=== PATIENT | female | born 1935 | race Caucasian/White ===

== ENCOUNTER 2018-06-06 22:48 | Emergency (ER) | payer MEDICARE ==
--- NOTE | 2018-06-06 23:32 | ED PDOC ---
HPI: General Adult Time Seen by Provider: 06/06/18 23:00 Chief Complaint (Nursing): Weakness/Neurological Deficit Chief Complaint (Provider): Weakness/Neurological Deficit History Per: Family History/Exam Limitations: no limitations Onset/Duration Of Symptoms: Days (x21) Current Symptoms Are (Timing): Still Present Recently: Treated By A Physician Additional Complaint(s): 82 y/o female with a PMHx of hyperlipidemia presents to the ED for evaluation of weakness. History obtained from the family who report that over the last three weeks, the patient has been eating less and less. Patient has been progressively been becoming more weak. Family states that a few months ago, patient began complaining of difficulty swallowing and had been spitting frequently. Patient had reported of feeling like mucous was stuck in her throat. Patient was evaluated by an ENT and found to have irritation and a mild exam. Patient continued to report difficulty in her throat and later developed decreased PO intake, excessive chills, decreased strength and activity. Patient generally appears dehydrated and "wasted". Patient when asked directly states she feels fine. PMD: Mitchell Quiñones Past Medical History Reviewed: Historical Data, Nursing Documentation, Vital Signs Vital Signs: Last Vital Signs Temp 98.6 F 06/07/18 02:00 Pulse 74 06/07/18 02:00 Resp 20 06/07/18 02:00 BP 175/71 H 06/07/18 02:00 Pulse Ox 98 06/08/18 15:40 - Medical History PMH: Hyperlipidemia - Surgical History Surgical History: No Surg Hx - Family History Family History: States: Unknown Family Hx - Social History Current smoker - smoking cessation education provided: No - Home Medications Home Medications: Ambulatory Orders Medication Instructions Recorded Sulfamethoxazole/Trimethoprim 1 tab PO BID #14 tab 06/07/18 [Bactrim DS 800 mg-160 mg] - Allergies Allergies/Adverse Reactions: Allergies Allergy/AdvReac Type Severity Reaction Status Date / Time No Known Allergies Allergy Verified 06/06/18 22:58 Review of Systems ROS Statement: Except As Marked, All Systems Reviewed And Found Negative (as per HPI) Constitutional: Positive for: Chills, Weakness, Other (Decreased strenght and activity ) ENT: Positive for: Other (Difficulty Swallowing) Gastrointestinal: Positive for: Other (Decreased PO Intake) Physical Exam - Reviewed Nursing Documentation Reviewed: Yes Vital Signs Reviewed: Yes - Physical Exam Appears: Positive for: No Acute Distress (but tired) Head Exam: Positive for: ATRAUMATIC, NORMOCEPHALIC Skin: Positive for: Warm, Dry Eye Exam: Positive for: Other (Sunken Orbits) ENT: Positive for: Normal ENT Inspection, Pharyngeal Erythema (No exudates), Other (Dry Mucous Membranes). Negative for: Tonsillar Exudate (or Erythema) Neck: Positive for: Painless ROM, Supple Cardiovascular/Chest: Positive for: Regular Rate, Rhythm. Negative for: Murmur Respiratory: Positive for: Normal Breath Sounds. Negative for: Wheezing Gastrointestinal/Abdominal: Positive for: Soft. Negative for: Tenderness Back: Positive for: Normal Inspection. Negative for: Decreased ROM Extremity: Positive for: Normal ROM. Negative for: Deformity Lymphatic: Negative for: Adenopathy Neurologic/Psych: Positive for: Alert. Negative for: Motor/Sensory Deficits - Laboratory Results Result Diagrams: 06/06/18 23:31 06/06/18 23:31 - ECG O2 Sat by Pulse Oximetry: 98 (RA) Pulse Ox Interpretation: Normal Medical Decision Making Medical Decision Making: Impression: Poor appetite and weakness Differentials include but not limited to dehydration, electrolyte abnormality, senial dementia, acute stroke, throat mass, and UTI. Plan: -- CT Head w/o Contrast -- CT Neck Soft Tissure w/o Contrast -- EKG -- Urine Culture -- Urinalysis -- IV Insertion -- CXR Portable -- CBC with differentials -- Troponin I -- Thyroid Stimulating Hormone -- Phosphorus -- Magnesium -- Lipase -- CMP -- Ammonia -- Case discussed with Dr. Urbina who agrees with plan of care. Time: 0000 -- Patient endorsed to Dr. Lew, pending CT, Urine and Portable CXR. Scribe Attestation: Documented by Leandra De Souza acting as a scribe for Dr. Perlita Alatorre. Provider Scribe Attestation: All medical record entries made by the Scribe were at my direction and personally dictated by me. I have reviewed the chart and agree that the record accurately reflects my personal performance of the history, physical exam, medical decision making, and the department course for this patient. I have also personally directed, reviewed, and agree with the discharge instructions and disposition. Disposition - Clinical Impression Clinical Impression: Weakness - Patient ED Disposition Is Patient to be Admitted: Transfer of Care - Disposition Referrals: Mitchell Urbina MD [Family Provider] - Disposition: Transfer of Care Disposition Time: 00:00 Condition: STABLE Prescriptions: Sulfamethoxazole/Trimethoprim [Bactrim DS 800 mg-160 mg] 1 tab PO BID #14 tab Instructions: Urinary Tract Infection, Adult (DC), Weakness (ED) Patient Signed Over To: Nya Lew
[2018-06-06 23:36] LABS: BASO % 0.5 % (0.0-2.0); EOS # 0.1 K/uL (0.0-0.7); EOS % 0.9 % (0.0-4.0); HEMOGLOBIN 13.2 g/dL (12.0-16.0); LYMPH # 3.2 K/uL (1.0-4.3); LYMPH % 44.8 % (20.0-40.0); MEAN CELL VOLUME 97.6 fl (81.0-99.0); MEAN CORPUSCULAR HEMOGLOBIN 32.9 pg (27.0-31.0); MEAN CORPUSCULAR HGB CONC 33.7 g/dL (33.0-37.0); MEAN PLATELET VOLUME 8.3 fl (7.2-11.7); MONO # 0.6 K/uL (0.0-0.8); MONO % 8.7 % (0.0-10.0); NEUT # 3.2 K/uL (1.8-7.0); NEUT % 45.1 % (50.0-75.0); NRBC % 0.1 % (0.0-0.0); RBC 4.01 Mil/uL (3.80-5.20); RED CELL DISTRIBUTION WIDTH 13.8 % (11.5-14.5); WHITE BLOOD COUNT 7.1 K/uL (4.8-10.8)
[2018-06-06 23:48] LABS: ALB/GLOB RATIO 1.5 (1.0-2.1); ALBUMIN 4.4 g/dL (3.5-5.0); ALT/SGPT 33 U/L (9-52); AST/SGOT 30 U/L (14-36); BLOOD UREA NITROGEN 12 mg/dl (7-17); CALCIUM 9.4 mg/dL (8.4-10.2); GFR AFRICAN-AMERICAN > 60; GFR NON-AFRICAN AMERICAN > 60; LIPASE 23 U/L (23-300)
[2018-06-06] MEDS ORDERED: Sodium Chloride 0.9% 1,000 ML IV STA (23:49)
[2018-06-07] MEDS ORDERED: Potassium Chloride 20 mEq ER Tab PO STA (00:01)
--- NOTE | 2018-06-07 00:23 | ED PDOC ---
- Laboratory Results Result Diagrams: 06/06/18 23:31 06/06/18 23:31 - ECG O2 Sat by Pulse Oximetry: 98 (RA) Pulse Ox Interpretation: Normal Medical Decision Making Medical Decision Making: Time: 0000 -- Patient endorsed to me by Dr. Alatorre, pending CT, CXR and Urine. Time: 012 CT NECK RESULTS FINDINGS: Oropharynx: Intact. No significant tonsillar enlargement. Hypopharynx: Patent. Larynx: Intact. Normal epiglottis. Trachea: Patent. Retropharyngeal space: No abnormal thickening. Submandibular/parotid glands: Intact. Glands are normal in size. Thyroid: Intact. No enlarged or calcified nodules. Bones/joints: Multilevel DJD changes cervical spine with moderate large anterior endplates osteophytes C3-C6. No acute fracture. Soft tissues: No radiopaque foreign body. No focal prevertebral soft tissue swelling. Vasculature: No acute findings. Lymph nodes: No lymphadenopathy. Lung apices: Interstitial subpleural fibrosis in included upper lungs. IMPRESSION: 1. Multilevel DJD changes cervical spine with moderate large anterior endplates osteophytes C3-C6. 2. No radiopaque foreign body. 3. No focal prevertebral soft tissue swelling. Thank you for allowing us to participate in the care of your patient. Dictated and Authenticated by: Chip Mcelroy MD 06/07/2018 1:24 AM Eastern Time ([place] & [place]) Time: 0131 CT HEAD RESULTS FINDINGS: Brain: No hemorrhage. Small calcifications of the left basal ganglia. Small periventricular microischemic changes. No edema. Ventricles: Appropriate for patient's age. Bones/joints: No acute fracture. Soft tissues: No radiopaque foreign body. Sinuses: No acute sinusitis. Mastoid air cells: No mastoid effusion. IMPRESSION: No acute CT intracranial abnormalities. Thank you for allowing us to participate in the care of your patient. Dictated and Authenticated by: Chip Mcelroy MD 06/07/2018 1:31 AM Eastern Time ([place] & [place]) Scribe Attestation: Documented by Leandra De Souza acting as a scribe for Dr. Nya Lew MD. Provider Scribe Attestation: All medical record entries made by the Scribe were at my direction and personally dictated by me. I have reviewed the chart and agree that the record accurately reflects my personal performance of the history, physical exam, medical decision making, and the department course for this patient. I have also personally directed, reviewed, and agree with the discharge instructions and disposition. Disposition Discussed With .: Mitchell Urbina Doctor Will See Patient In The: Office Counseled Patient/Family Regarding: Studies Performed, Diagnosis, Need For Followup - Clinical Impression Clinical Impression: UTI (urinary tract infection) - POA Present On Arrival: None - Disposition Referrals: Mitchell Urbina MD [Family Provider] - Disposition: Routine/Home Disposition Time: 01:52 Condition: GOOD Additional Instructions: Take your medications as instructed. Follow up with your PCP in 2-3 days. Return for worsening PALAK HOPSON, thank you for letting us take care of you today. Your provider was Nya Lew MD and you were treated for NO APPETITE/WEAKNESS. The emergency medical care you received today was directed at your acute symptoms. If you were prescribed any medication, please fill it and take as directed. It may take several days for your symptoms to resolve. Return to the Emergency Department if your symptoms worsen, do not improve, or if you have any other problems. Please contact your doctor or call one of the physicians/clinics you have been referred to that are listed on the Patient Visit Information form that is included in your discharge packet. Bring any paperwork you were given at discharge with you along with any medications you are taking to your follow up visit. Our treatment cannot replace ongoing medical care by a primary care provider outside of the emergency department. Thank you for allowing the [facility] team to be part of your care today. If you had an X-Ray or CT scan: A Radiologist will review the ED reading if any change in treatment is needed we will contact you. If you had a blood, urine, or wound culture: It will take several days for the results, if any change in treatment is needed we will contact you. If you had an STI test: It will take 48 hours for the results. Please call after 1 week if you have not heard back. Prescriptions: Sulfamethoxazole/Trimethoprim [Bactrim DS 800 mg-160 mg] 1 tab PO BID #14 tab Instructions: Urinary Tract Infection, Adult (DC)
[2018-06-07 00:35] LABS: SQUAMOUS EPITHIAL 3 /hpf (0-5); URINE BACTERIA RARE (<OCC); URINE BILIRUBIN NEGATIVE (NEGATIVE); URINE BLOOD SMALL (NEGATIVE); URINE CLARITY CLOUDY (Clear); URINE COLOR YELLOW (YELLOW); URINE GLUCOSE (UA) NEG (Normal); URINE LEUKOCYTE ESTERASE LARGE Leu/uL (Negative); URINE PROTEIN NEGATIVE (NEGATIVE); URINE UROBILINOGEN 0.2-1.0 mg/dL (0.2-1.0)
[2018-06-07] MEDS ORDERED: Potassium Chloride 20 mEq ER Tab PO ONE ×2 (00:35→00:37)
[2018-06-07 02:02] VITALS: BP 175/71; PULSE 74; RESP 20; TEMP 98.6
--- NOTE | 2018-06-07 07:37 | CARD ---
APPROVED REPORT Date of service: 06/06/2018 <Conclusion> Unusual P axis and short NE interval, likely junctional tachycardia. Nonspecific ST abnormality Abnormal ECG
--- NOTE | 2018-06-07 10:12 | CT ---
Date of service: 06/07/2018 PROCEDURE: CT HEAD WITHOUT CONTRAST. HISTORY: ams COMPARISON: None available. TECHNIQUE: Axial computed tomography images were obtained through the head/brain without intravenous contrast. Radiation dose: Total exam DLP = 717.46 mGy-cm. This CT exam was performed using one or more of the following dose reduction techniques: Automated exposure control, adjustment of the mA and/or kV according to patient size, and/or use of iterative reconstruction technique. FINDINGS: HEMORRHAGE: No intracranial hemorrhage. BRAIN: No mass effect or edema. No atrophy or chronic microvascular ischemic changes. VENTRICLES: Unremarkable. No hydrocephalus. CALVARIUM: Unremarkable. PARANASAL SINUSES: Unremarkable as visualized. No significant inflammatory changes. MASTOID AIR CELLS: Unremarkable as visualized. No inflammatory changes. OTHER FINDINGS: None. IMPRESSION: No intracranial mass, hemorrhage or evidence of acute infarct. The preliminary findings for this examination were reported by [facility] at 1:31 a.m. on 06/07/2018. There is concurrence of this report with the preliminary findings.
--- NOTE | 2018-06-07 10:18 | CT ---
Date of service: 06/07/2018 PROCEDURE: CT NECK WITHOUT CONTRAST HISTORY: difficulty swallowing COMPARISON: None available. TECHNIQUE: CT of the neck without intravenous contrast. Coronal and sagittal reformats generated. Radiation dose: DLP 339.79 mGy-cm This CT exam was performed using one or more of the following dose reduction techniques: Automated exposure control, adjustment of the mA and/or kV according to patient size, and/or use of iterative reconstruction technique. FINDINGS: NASOPHARYNX: Unremarkable. SUPRAHYOID NECK: Unremarkable oropharynx, oral cavity, parapharyngeal space and retropharyngeal space. INFRAHYOID NECK: Unremarkable larynx, hypopharynx, and supraglottic space. Vocal cords intact. MASS: None. GLANDS: Parotid and submandibular glands unremarkable. Normal size thyroid gland, without nodule. LYMPH NODES: Normal. No lymphadenopathy. CERVICAL SPINE: Severe multilevel degenerative disc disease C3-4 through C6-7 with grade 1 retrolisthesis at C3-4. No evidence of fracture. Vertebral bodies maintained height. Multilevel neural foraminal stenosis. There is mild central spinal stenosis noted at the C3-4 level. No spinal stenosis seen elsewhere. OTHER FINDINGS: None. IMPRESSION: No evidence of epiglottitis or retropharyngeal abscess. Incidentally noted severe multilevel degenerative disc disease with mild central spinal stenosis at C3-4 and multilevel neural foraminal stenosis. No additional abnormality. The preliminary findings for this examination were reported by [facility] at 1:24 a.m. on 06/07/2018. There is concurrence of this report with the preliminary findings.
--- NOTE | 2018-06-07 16:35 | RAD ---
Date of service: 06/07/2018 HISTORY: cough COMPARISON: 04/29/2018 FINDINGS: LUNGS: Diffuse reticular interstitial infiltrate. No focal consolidation. PLEURA: No significant pleural effusion identified, no pneumothorax apparent. CARDIOVASCULAR: Normal. OSSEOUS STRUCTURES: No significant abnormalities. VISUALIZED UPPER ABDOMEN: Normal. OTHER FINDINGS: None. IMPRESSION: No acute infiltrate. Diffuse interstitial infiltrate, likely chronic. .
[2018-06-08 15:37] VITALS: O2SAT 98
== END 2018-06-07 02:02 | disposition home or self-care (01) ==
LOC: H.ER 22:48
DX: N39.0 Urinary tract infection, site not specified (principal); M62.81 Muscle weakness (generalized); E78.5 Hyperlipidemia, unspecified; R13.10 Dysphagia, unspecified
CPT/HCPCS: 70450; 70490; 71045; 80053; 81003; 82140; 83690; 83735; 84100; 84443; 84484; 85025; 87086; 93005; 99285; J7030